=== PATIENT | male | born 1980 | race African-American/Black ===

== ENCOUNTER 2021-01-15 08:36 | Emergency (ER) | payer BC, OTHER ==
[2021-01-15 08:41] VITALS: BMI 26.6
[2021-01-15] MEDS ORDERED: ACETAMINOPHEN 1000 MG/100 ML VIAL IVPB ONE (09:32)
[2021-01-15] MEDS ORDERED: SODIUM CHLORIDE 1,000 ML IV STA (09:32)
[2021-01-15] MEDS ORDERED: METOCLOPRAMIDE HCL INJECTION 10 MG/2 ML VIAL IVPB ONE (09:32)
[2021-01-15] MEDS ORDERED: METOCLOPRAMIDE HCL INJECTION 10 MG/2 ML VIAL ONE (09:45)
[2021-01-15] MEDS ORDERED: ACETAMINOPHEN INJECTION 100 ML IVPB ONE (09:45)
[2021-01-15 10:34] LABS: BASO % 1.7 % (0-2.0); EOS % 0.7 % (0-4.5); HEMATOCRIT 43.4 % (35.4-49); LYMPH % 17.7 % (8-40); MCHC 34.6 g/dl (32.0-35.9); MEAN CELL VOLUME 95.3 fl (80-96); MEAN PLT VOLUME 8.1 fl (7.5-11.1); MONO % 11.4 % (3.8-10.2); NEUT % 68.5 % (42.8-82.8); PLATELET COUNT 271 10^3/uL (134-434); RBC 4.55 M/mm3 (4.00-5.60); RDW 14.3 % (11.9-15.9); WHITE BLOOD COUNT 5.1 K/mm3 (4.0-10.0)
[2021-01-15 10:52] LABS: BLOOD UREA NITROGEN 12.9 mg/dL (7-18); CALCIUM 9.9 mg/dL (8.5-10.1)
[2021-01-15 10:53] LABS: ALBUMIN 4.6 g/dl (3.4-5.0)
[2021-01-15 10:57] LABS: BILIRUBIN,TOTAL 1.6 mg/dL (0.2-1); TOT PROT 8.6 g/dl (6.4-8.2)
[2021-01-15] MEDS ORDERED: levETIRAcetam 500 MG/5 ML INJECTION VIAL IVPB ONE ×2 (12:49→13:22)
[2021-01-15] MEDS ORDERED: NICARDIPINE 25 MG in DEXTROSE 5%-WATER - 240 ML IVPB SCH (13:00)
[2021-01-15 13:31] LABS: INR 0.93 (0.83-1.09); PROTHROMBIN TIME (PATIENT) 10.9 SEC (9.7-13.0)
[2021-01-15 13:33] VITALS: BP 140/90; PULSE 57; TEMP 98.6
== END 2021-01-15 13:41 | disposition short-term general hospital (02) ==
LOC: JER 08:36
PROC: 3E033GC Introduction of Other Therapeutic Substance into Peripheral Vein, Percutaneous Approach (ICD-10-PCS; principal; 2021-01-15)
DX: S06.5X9A Traumatic subdural hemorrhage with loss of consciousness of unspecified duration, initial encounter (principal); W01.198A Fall on same level from slipping, tripping and stumbling with subsequent striking against other object, initial encounter
CPT/HCPCS: 36415; 70450-TC; 71045-TC-FY; 80053; 85025; 85610; 86850; 86900; 86901; 93005; 93010; 99291; C9803; J0131; U0003; U0005

== ENCOUNTER 2021-06-24 08:47 | Emergency (ER) | payer OTHER ==
[2021-06-24 08:56] VITALS: BP 130/84; PULSE 67; TEMP 97.8; BMI 24.1
[2021-06-24] MEDS ORDERED: FAMOTIDINE 20 MG TABLET PO ONE (09:41)
[2021-06-24] MEDS ORDERED: DEXAMETHASONE 4 MG TABLET (FP) PO ONE (09:41)
[2021-06-24] MEDS ORDERED: FAMOTIDINE 20 MG TABLET ONE (09:46)
[2021-06-24] MEDS ORDERED: DEXAMETHASONE SOD PHOSPHATE 10 MG/1 ML VIAL ONE ×2 (09:46)
== END 2021-06-24 10:00 | disposition home or self-care (01) ==
LOC: JERFT 08:47 → JER 08:47 → JERFT 10:00
DX: L30.9 Dermatitis, unspecified (principal)
CPT/HCPCS: 99283-25

== ENCOUNTER 2022-12-20 00:27 | Emergency (ER) | payer OTHER ==
[2022-12-20 00:41] VITALS: BP 146/92; TEMP 99.4; BMI 26.4
[2022-12-20 01:40] LABS: BASO % 0.8 % (0-2.0); EOS % 0.2 % (0-4.5); HEMATOCRIT 43.1 % (35.4-49); HEMOGLOBIN 14.6 GM/dL (11.7-16.9); LYMPH % 14.6 % (8-40); MCH 31.1 pg (25.7-33.7); MCHC 33.8 g/dl (32.0-35.9); MEAN PLT VOLUME 8.1 fl (7.5-11.1); MONO % 10.1 % (3.8-10.2); NEUT % 74.3 % (42.8-82.8); PLATELET COUNT 243 10^3/uL (134-434); RBC 4.68 M/mm3 (4.00-5.60); RDW 15.1 % (11.9-15.9); WHITE BLOOD COUNT 12.9 K/mm3 (4.0-10.0)
[2022-12-20 02:05] LABS: POTASSIUM 4.8 mmol/L (3.5-5.1)
[2022-12-20 02:07] LABS: CALCIUM 9.4 mg/dL (8.5-10.1)
[2022-12-20 02:08] LABS: ALBUMIN 4.3 g/dl (3.4-5.0); BLOOD UREA NITROGEN 13.7 mg/dL (7-18)
[2022-12-20 02:11] LABS: CREATININE 1.1 mg/dL (0.55-1.3)
[2022-12-20 02:13] LABS: BILIRUBIN,TOTAL 0.6 mg/dL (0.2-1); TOT PROT 7.7 g/dl (6.4-8.2)
[2022-12-20 03:17] VITALS: PULSE 74; RESP 15
== END 2022-12-20 03:16 | disposition short-term general hospital (02) ==
LOC: JER 00:27
DX: L76.22 Postprocedural hemorrhage of skin and subcutaneous tissue following other procedure (principal)
CPT/HCPCS: 36415; 70491-TC; 80053; 85025; 93005; 93010; 99285-25; Q9967